=== PATIENT | male | born 1990 ===

== ENCOUNTER 2021-11-07 11:30 | Outpatient (RCR) | payer OTHER, SELFPAY ==
--- NOTE | 2021-10-23 12:06 | PC.ADMIT ---
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 Patient also reports fathers illness as a trigger. Patient has been using ETOH to cope binge drinking 1-2 x a week and was recently charged with a DUI. Patient struggling with much guilt and is at [facility] for more support. Patient is alert and oriented x4. Calm and cooperative. Denied SI or thoughts to harm self at present. Emailed patient a copy of his safety plan. Patient continues to struggle with depression and self esteem issues. Denied current ETOH use. Last use 10/07/21. Denied cravings. Patient prescribed Naltrexone. In addition to PHP patient plans on attending AA starting next Friday for continued support. Reconciled patient medications with patient and discharge paperwork from [facility]. Patient reports taking medications as prescribed.
--- NOTE | 2021-10-23 19:24 | P.PNPSP_ITS ---
Subjective Subjective Date of Service: 10/23/21 Reason For Visit: depression Assessment & Plan Certification I certify that partial hospital treatment is medically necessary due to the symptoms and problems resulting from the patient's mental illness and the jacques lure to treat the patient at the partial hospital level of care would likely result in the patient requiring inpatient psychiatric care which could not be prevented at a less intensive level of care. I spent minutes with the patient and/or on the patient floor today, greater than?50% of which was spent counseling/coordinating care. Discharge Plan Discharge Attending provider: Ronnie Leger Medications: New naltrexone 50 mg tablet 50 mg PO DAILY 30 Days Qty: 30 0RF venlafaxine [Effexor XR] 150 mg capsule,extended release 24hr 150 mg PO BEDTIME Qty: 30 0RF Discontinued naltrexone 50 mg Tablet 50 mg PO DAILY 0RF venlafaxine 150 mg Capsule,Extended Release 24hr 150 mg PO DAILY 0RF No Action multivitamin Tablet 1 tab PO DAILY 0RF trazodone 50 mg Tablet 50 mg PO BEDTIME PRN (Reason: Insomnia) 0RF bupropion HCl 300 mg Tablet Extended Release 24 Hr 300 mg PO QAM 0RF
--- NOTE | 2021-10-24 10:45 | PC.NURSE ---
Patient c/o diarrhea today and needed to take time off from [facility] as a result. Notified Yuliana Cartagena NP. Patient's Venlafaxine was decreased from 150 mg to 112.5 mg. Encouraged patient to increase fluid intake.
--- NOTE | 2021-10-24 15:18 | PC.NURSE ---
Pt called and I spoke to him several minutes after the start of the first group. He said he thinks he has a stomach bug and said he will be out the rest of the day.
--- NOTE | 2021-10-25 15:27 | PC.NURSE ---
Case opened in treatment team.
--- NOTE | 2021-10-25 16:51 | PC.NURSE ---
I called and spoke with pt after a discussion that came up in treatment team around need for reporting physicians with alcohol problems to the [place] [employer]. Dr. Leger asked that we find out if pt or one of his treaters has contacted the [facility] ([facility]), or to have him call himself. Otherwise, staff needs to make this call. Pt said that he has called and is working closely with staff at [facility]. 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 He agreed to verbally sign a RICA for [facility].
--- NOTE | 2021-10-31 10:56 | P.PNPSP_ITS ---
Subjective Subjective Date of Service: 10/31/21 Reason For Visit: depression Guardianship: No Medical Problems Affecting Mental Status: No Interim History: Describes mood as middle of the road . Denies SI. Reports remained on Effexor 150 mg, has switched it to nighttime, with good effect. Wishes to remain on 150 dose at this time. Needs naltrexone refill. Has continued to abstain from alcohol use. Medication Compliance: Yes Side effects from medications: No Attending Groups: Yes Review of Systems Acute medical concerns: No Review of Systems Review of Systems Yes all other systems are reviewed and are negative Constitutional: Reports no additional constitutional complaints Eyes: Reports no additional eye complaints Reports Normal hearing present Cardiovascular: Reports no additional cardiovascular complaints Respiratory: Reports no additional respiratory complaints Genitourinary: Reports no additional male genitourinary complaints Musculoskeletal: Reports no additional musculoskeletal complaints Skin/Breast: Reports system reviewed and no additional complaints, except as docu Reports Normal hearing present Mental Status Exam Mental Status Exam Narrative: Well-developed, well-nourished male, in NAD. Dressed appropriately. No acute distress. Behavior was calm, cooperative. Psychomotor/musculoskeletal/gait: No slowing or agitation noted, ambulation not observed. Speech and language: Regular rate and rhythm, full prosody, normal volume. Mood: Middle of the road . Affect congruent. Thought process was linear, goal directed. No loosening of associations noted. No SI/HI. No evidence of hallucinations, paranoia, delusions noted. Was fully alert and oriented x4. Memory intact. Attention and concentration appropriate, able to follow conversation without difficulty. Abstract reasoning intact. Ability to Follow Directions: Excellent Thought Process: Intact Thought Content: positive for Intact Depressive Symptoms: Loss of Int. in Activity and Unhappiness Judgement: Fair Assessment & Plan Assessment & Plan (1) Major depressive disorder, recurrent, moderate: Status: Acute Code(s): F33.1 - Major depressive disorder, recurrent, moderate Assessment and Plan: Patient continues with some symptoms of depression and anxiety, describes mood as ?middle of the road ?. Denies any SI/HI. States that he has an upsetting phone call last evening, which has contributed to his so/so mood today. Discussed medications. He had discussed last week considering lowering Effexor dose because he had some fatigue. However, he has switched the timing to bedtime, and it is working well. Will remain on current dose of 150 mg daily at bedtime. Reports other medications are working, and that he feels PHP program is helpful. Reports sleep and appetite are improving. (2) Generalized anxiety disorder: Status: Acute Code(s): F41.1 - Generalized anxiety disorder (3) Alcohol dependence, uncomplicated: Status: Acute Code(s): F10.20 - Alcohol dependence, uncomplicated Assessment and Plan: Continues to at stain from alcohol. Information regarding [facility] [employer] was provided to patient, he will consider reaching out to organization. He is already connected to services in this area. Reports naltrexone is working well, requests refill. Plan 1. Continue with current [facility] plan of care. 2. Naltrexone 50 mg daily, 30 day supply script sent to pharmacy. 3. Effexor XR are 150 mg at bedtime daily, 30 day script sent to pharmacy. 4. Follow-up as per protocol. Patient educated on: diagnosis, medication risk/benefits, substance abuse and therapeutic strategies Informed Consent: understands Reason for contiued partial hosp. stay Substantial Risk for: harm to self, inability to function and med/psych decompensation Certification I certify that partial hospital treatment is medically necessary due to the symptoms and problems resulting from the patient's mental illness and the failure to treat the patient at the partial hospital level of care would likely result in the patient requiring inpatient psychiatric care which could not be prevented at a less intensive level of care. I spent minutes with the patient and/or on the patient floor today, greater than?50% of which was spent counseling/coordinating care. Discharge Plan Discharge Attending provider: Ronnie Leger Medications: New naltrexone 50 mg tablet 50 mg PO DAILY 30 Days Qty: 30 0RF venlafaxine [Effexor XR] 150 mg capsule,extended release 24hr 150 mg PO BEDTIME Qty: 30 0RF Discontinued naltrexone 50 mg Tablet 50 mg PO DAILY 0RF venlafaxine 150 mg Capsule,Extended Release 24hr 150 mg PO DAILY 0RF No Action multivitamin Tablet 1 tab PO DAILY 0RF trazodone 50 mg Tablet 50 mg PO BEDTIME PRN (Reason: Insomnia) 0RF bupropion HCl 300 mg Tablet Extended Release 24 Hr 300 mg PO QAM 0RF Telehealth Telehealth Location of provider rendering services: practice address Location of patient: address on file Patient Identification confirmed using: Name, : Yes Telehealth method: video Patient verbally consented to treatment: Yes Patient verbally consented to billing insurance company: Yes Patient informed of any privacy concerns related to visit: Yes Minutes spent on Phone/Video with Pt.: 15
--- NOTE | 2021-11-01 10:01 | PC.NURSE ---
I called [facility] to refer pt for individual therapy, as discussed with pt. I was asked to send an email requesting this ([email or web address]), and did so.
--- NOTE | 2021-11-01 14:19 | PC.NURSE ---
I received an email from Mona asking if pt can be seen in person in their [place] office. I responded and said Yes, he can.
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
--- NOTE | 2021-11-05 15:13 | PC.NURSE ---
I called [facility] to check on the status of pt's referral for individual therapy. I spoke to Maira, who searched and could not find any evidence of this referral being placed. She took all referral information again, and told me there's a 8-12 week wait. I then told her that I was told this would be considered a hospital discharge , and asked if I might get an appointment prior to pt's discharge. She put me on hold, and when returned, she said Mona (who I've been exchanging emails with) is on vacation and they are going to call her and see if she gives approval for this to be a hospital discharge , in which case she will be able to schedule an appointment. I gave her my number to call back.
--- NOTE | 2021-11-07 09:26 | PC.NURSE ---
Patient discharging from the program today. Denied SI, no safety issues. Patient denied any ETOH use. Reports some sparse cravings at times. Patient is attending [facility] and his is attending [facility] for more support. Reviewed medications with patient. Patient reports taking medications as prescribed.
--- NOTE | 2021-11-07 11:37 | P.PNPSP_ITS ---
Subjective Subjective Date of Service: 11/07/21 Reason For Visit: depression Guardianship: No Medical Problems Affecting Mental Status: No Interim History: Reports mood has improved since starting PHP. Less depression, less anxiety. No SI, no safety concerns. Naltrexone has been helpful, reports cravings for alcohol have been ?sparse ?. Feels ready for discharge from [facility] at this time. Plans to return to work Friday. Medication Compliance: Yes Side effects from medications: No Attending Groups: Yes Review of Systems Acute medical concerns: No Medical Review of Systems: unchanged Review of Systems Review of Systems Yes all other systems are reviewed and are negative Constitutional: Reports no additional constitutional complaints Mental Status Exam Mental Status Exam Narrative: A&OX4. Well groomed, good hygiene, appropriately dressed. Good eye contact, attentive. No Tics or Tremors. No abnormal involuntary movements. Calm, cooperative, engaged. Non-pressured speech, spontaneous with regular rate and rhythm, normal volume and prosody. Mood is ?good,? affect is euthymic. Denies SI/SIB/HI upon inquiry. Denies A/VH or delusional thought content. Thoughts are coherent, organized. No known cognitive or memory impairment. Insight/ Judgment intact. Assessment & Plan Assessment & Plan (1) Alcohol dependence, uncomplicated: Status: Acute Code(s): F10.20 - Alcohol dependence, uncomplicated Assessment and Plan: Patient reports he continues remaining abstinent from alcohol. He states that the naltrexone 50 mg daily has been helpful, describes cravings as ?sparse ?. He is engaged in physician recovery support program. He was encouraged to continue utilizing recovery support network going forward. (2) Generalized anxiety disorder: Status: Acute Code(s): F41.1 - Generalized anxiety disorder Assessment and Plan: Patient reports overall feeling less anxious, has gained healthy coping skills while in partial regarding managing his anxiety. Discussed family care giving concerns regarding his father with Alzheimer's. He was encouraged to continue to utilize supports throughout this difficult time. (3) Major depressive disorder, recurrent, moderate: Status: Acute Code(s): F33.1 - Major depressive disorder, recurrent, moderate Assessment and Plan: Patient reports feeling mood has greatly improved. He feels stable for leaving partial today, plan is to return to work on Friday. He continues with Wellbutrin and Effexor, reports no side effects. He reports he feels the medications are helpful. No SI/HI, no SI be, no safety concern. Has up coming intake for therapist. Plan 1. Patient appears stable for discharge from [facility] at this time. 2. Patient plans to continue with current medication regimen. 3. Patient will follow-up with outpatient providers going forward. Patient educated on: diagnosis, medication risk/benefits, substance abuse and therapeutic strategies Informed Consent: understands Reason for contiued partial hosp. stay Substantial Risk for: stable for discharge Certification I certify that partial hospital treatment is medically necessary due to the symptoms and problems resulting from the patient's mental illness and the failure to treat the patient at the partial hospital level of care would likely result in the patient requiring inpatient psychiatric care which could not be prevented at a less intensive level of care. I spent minutes with the patient and/or on the patient floor today, greater than?50% of which was spent counseling/coordinating care. Discharge Plan Discharge Attending provider: Ronnie Leger Additional Instructions: Intake appointment for a therapist at [facility] in [facility] on , 11/08/21 with Terrie Humphrey at 11am to 12pm. Medications: New naltrexone 50 mg tablet 50 mg PO DAILY 30 Days Qty: 30 0RF venlafaxine [Effexor XR] 150 mg capsule,extended release 24hr 150 mg PO BEDTIME Qty: 30 0RF Discontinued naltrexone 50 mg Tablet 50 mg PO DAILY 0RF venlafaxine 150 mg Capsule,Extended Release 24hr 150 mg PO DAILY 0RF No Action multivitamin Tablet 1 tab PO DAILY 0RF trazodone 50 mg Tablet 50 mg PO BEDTIME PRN (Reason: Insomnia) 0RF bupropion HCl 300 mg Tablet Extended Release 24 Hr 300 mg PO QAM 0RF Stand Alone Forms: Patient Portal Discharge page Telehealth Telehealth Location of provider rendering services: practice address Location of patient: address on file Patient Identification confirmed using: Name, : Yes Telehealth method: video Patient verbally consented to treatment: Yes Patient verbally consented to billing insurance company: Yes Patient informed of any privacy concerns related to visit: Yes Minutes spent on Phone/Video with Pt.: 15
== END 2021-11-07 23:59 | disposition home or self-care (01) ==
LOC: HO.PHPA 11:30
PROVIDERS: Visit Provider Psychiatry & Neurology Psychiatry
DX: F33.1 Major depressive disorder, recurrent, moderate (principal); F41.1 Generalized anxiety disorder; F10.20 Alcohol dependence, uncomplicated; Z79.899 Other long term (current) drug therapy
CPT/HCPCS: 90791; 90853